=== PATIENT | female | born 1990 | race Two or more races ===

== ENCOUNTER 2016-03-19 00:19 | Emergency (ER) | payer SELFPAY ==
[~2016-03-19] VITALS: Ht 162.6 cm; Wt 76.7 kg
[~2016-03-19 00:19] MED LIST: CIPRO500 MG PO; CLOTRIMAZOLE45 GM VG; DIFLUCAN100 MG ORAL; KENALOG 0.1% CR15 GM APPLIC; NITROFURANTOIN100 MG PO; PYRIDIUM200 M1 ORAL
[2016-03-19] MEDS ORDERED: NKM (00:36)
[2016-03-19 00:38] VITALS: BP 133/86
[2016-03-19] MEDS ORDERED: Ketorolac 60mg Inj IM ONE (01:15)
[2016-03-19] MEDS ORDERED: BACTRIM DS TAB1 EAC1 ORAL (01:16)
[2016-03-19] MEDS ORDERED: KEFLEX500 MG ORAL (01:16)
[2016-03-19] MEDS ORDERED: IBUPROFEN600 MG ORAL (01:16)
[2016-03-19 01:45] VITALS: BP 124/83
[2016-03-19 01:50] VITALS: BP 124/83
--- NOTE | 2016-03-19 08:56 | Emergency Room Report ---
History of Present Illness General Chief Complaint: Skin Rash/Abscess Source: Patient Present Illness HPI Patient is a 25-year-old female presented after increased skin rash to the right side of her back. Patient had a previous episodes of a skin abscess in the past. Patient was noted to have a gradual onset of symptoms. She denied any fever. She reported having another lesion near by which seem to have somewhat worsened. Patient reported having pain to the area she denied other locations of pain. Allergies: Coded Allergies: No Known Allergies (Unverified , 03/19/16) Patient History Past Medical History: see triage record Last Menstrual Period: Mar 04 Now: No Reviewed Nursing Documentation: PMH: Agreed, PSxH: Agreed Nursing Documentation-PMH Past Medical History: No Stated History Review of Systems All Other Systems: negative except mentioned in HPI Physical Exam Vital Signs Date Time Temp Pulse Resp B/P Pulse Ox O2 Delivery O2 Flow Rate FiO2 03/19/16 00:31 98.1 86 16 137/85 100 Room Air General Appearance: well appearing, no apparent distress, alert, GCS 15 Head: normocephalic, atraumatic ENT: hearing grossly normal, normal voice Neck: full range of motion, supple Respiratory: no respiratory distress, speaking full sentences Gastrointestinal: normal inspection Musculoskeletal: normal inspection, digits/nails normal, no calf tenderness Neurologic: normal inspection, alert, oriented x3, responsive, normal gait Psychiatric: mood/affect normal Skin: other - erythematous and swelling to right side of midback, no fluctuance noted. Medical Decision Making Diagnostic Impression: Primary Impression: Skin infection ER Course Patient presented for skin rash. Differential diagnosis included wasn't limited to sebaceous cyst, lipoma, abscess, spider bite among others. Patient's benign exam and does not appear to require any further imaging or laboratory testing at this time. The patient presented infected bite. This does not appear to require surgical drainage at this time. The patient was advised to have the wound rechecked in the 1- 2 days for increased fluctuance and possible incision and drainage. Patient presented for skin rash. Differential diagnosis included wasn't limited to sebaceous cyst, lipoma, abscess, spider bite among others. Patient's benign exam and does not appear to require any further imaging or laboratory testing at this time. The patient presented infected bite. This does not appear to require surgical drainage at this time. The patient was advised to have the wound rechecked in the 1- 2 days for increased fluctuance and possible incision and drainage. Labs Test 03/19/16 01:20 Urine HCG, Qualitative Negative Last Vital Signs Date Time Temp Pulse Resp B/P Pulse Ox O2 Delivery O2 Flow Rate FiO2 03/19/16 01:50 98.1 80 15 124/83 100 Room Air Status: improved Disposition: HOME, SELF-CARE Condition: Stable Scripts Ibuprofen* (MOTRIN*) 600 Mg Tablet 600 MG ORAL Q8H Y for For Pain, #30 TAB 0 Refills Prov: Tej Arevalo 03/19/16 Cephalexin* (KEFLEX*) 500 Mg Capsule 500 MG ORAL Q6H, #28 CAP 0 Refills Prov: Tej Arevalo 03/19/16 Trimethoprim/Sulfamethoxazole 160/800* (BACTRIM DS TABLET*) 1 Each Tablet 1 TAB ORAL Q12H, #14 TAB 0 Refills Prov: Tej Arevalo 03/19/16 Referrals: NOT CHOSEN IPA/MD,REFERRING (PCP) Patient Instructions: Cellulitis, Insect Bite, [id number] Tej Arevalo Mar 19, 2016 08:56
== END 2016-03-19 01:50 | disposition home or self-care (01) ==
LOC: EMR 01:36
DX: L08.9 Local infection of the skin and subcutaneous tissue, unspecified (principal)
CPT/HCPCS: 81025; 96372; 99284

== ENCOUNTER 2017-02-24 17:41 | Emergency (ER) | payer OTHER ==
[~2017-02-24] VITALS: Ht 170.2 cm; Wt 77.1 kg
[~2017-02-24 17:41] MED LIST changes: +BACTRIM DS TAB1 EAC1 ORAL; +IBUPROFEN600 MG ORAL; +KEFLEX500 MG ORAL; +NKM
[2017-02-24 18:02] VITALS: BP 121/78
--- NOTE | 2017-02-24 18:08 | Emergency Room Report ---
History of Present Illness General Chief Complaint: General Complaint Source: Patient, Significant Other Present Illness HPI 26-year-old female with one episode of mild vaginal spotting Patient is , dates approximately 7 weeks as per LMP Has followed with OB, but has not had ultrasound yet Is on vitamins Took [place] at home for pain States pain mostly resolved at time of evaluation Denies dysuria, polyuria, fever chills or vomiting Allergies: Coded Allergies: No Known Allergies (Unverified , 03/19/16) Patient History Past Medical History: none Past Surgical History: none Pertinent Family History: none Social History: Denies: smoking, alcohol use, drug use Now: No Immunizations: UTD Reviewed Nursing Documentation: PMH: Agreed, PSxH: Agreed Nursing Documentation-PMH Past Medical History: No Stated History Review of Systems All Other Systems: negative except mentioned in HPI Physical Exam Vital Signs Date Time Temp Pulse Resp B/P (MAP) Pulse Ox O2 Delivery O2 Flow Rate FiO2 02/24/17 17:52 99.3 83 16 121/78 100 Room Air Sp02 EP Interpretation: reviewed, normal General Appearance: normal inspection, well appearing, no apparent distress, alert, GCS 15, non-toxic Head: normocephalic, atraumatic Eyes: bilateral eye PERRL, bilateral eye EOMI ENT: normal ENT inspection, hearing grossly normal, normal pharynx, no angioedema, normal voice, TMs + canals normal, uvula midline, moist mucus membranes Neck: normal inspection, full range of motion, supple, thyroid normal, no meningismus, no bony tend Respiratory: normal inspection, lungs clear, normal breath sounds, no rhonchi, no respiratory distress, no retraction, no accessory muscle use, no wheezing, speaking full sentences Cardiovascular #1: regular rate, rhythm, no edema, no JVD, normal capillary refill Gastrointestinal: normal inspection, normal bowel sounds, non tender, soft, no mass, no peritonitis, non-distended, no guarding, no hernia, no pulsatile mass Genitourinary: no CVA tenderness Musculoskeletal: normal inspection, back normal, normal range of motion, no calf tenderness, pelvis stable, Myriam's Sign negative Neurologic: normal inspection, alert, oriented x3, responsive, clarification operator III-XII nml as tested, motor strength/tone normal, cerebellar normal, normal gait, speech normal Psychiatric: normal inspection, judgement/insight normal, mood/affect normal, no suicidal/homicidal ideation, no delusions Skin: normal inspection, normal color, no rash Lymphatic: normal inspection, no adenopathy Medical Decision Making Diagnostic Impression: Primary Impression: Vaginal spotting ER Course VSS, afebrile Urine preg positive No vaginal hemorrhage Given additional tylenol here - likely round ligament pain of Advised ONLY tylenol bedside abd ultrasound: gestational sac with yolk sac and pole with visualized HR - not on fertility so unlikely ectopic at this time Advised to followup with scheduled OB visit in 2 weeks; return to ER for vaginal hemorrhage, severe pain ER course: Patient has remained stable during ED stay. Patient is to be discharged to home. Patient is instructed to follow up with OB at scheduled appointment in March Strict return precautions discussed with patient such as fever, chills, worsening/severe pain, nausea, vomiting, which may indicate severe illness. Patient verbalizes understanding and agrees with plan. Please note that this Emergency Department Report was dictated using [employer] offsider technology software, occasionally this can lead to erroneous entry secondary to interpretation by the dictation equipment Last Vital Signs Date Time Temp Pulse Resp B/P (MAP) Pulse Ox O2 Delivery O2 Flow Rate FiO2 02/24/17 17:52 99.3 83 16 121/78 100 Room Air Status: improved Disposition: HOME, SELF-CARE RIRI LAMBERT M.D. Feb 24, 2017 18:08
[2017-02-24] MEDS ORDERED: TYLENOL325 MG ORAL (18:14)
[2017-02-24 18:32] VITALS: BP 121/78
== END 2017-02-24 18:32 | disposition home or self-care (01) ==
LOC: EMR 17:55
DX: O26.851 Spotting complicating pregnancy, first trimester (principal); Z3A.01 Less than 8 weeks gestation of pregnancy
CPT/HCPCS: 81025; 99283